=== PATIENT | male | born 1960 | race Caucasian/White ===

== ENCOUNTER 2019-09-08 10:48 | Day surgery (SDC) | payer BC, OTHER ==
[~2019-09-08] VITALS: Ht 188 cm; Wt 143.8 kg
[~2019-09-08 10:48] MED LIST: ASPIR 8181 M1 PO; HYTRIN 1 MG CAP1 MG PO; IBUPROFEN 800800 M1 PO; LISINOPRIL-HCT1 EAC1 PO; METOPROLOL TAR100 MG PO; OMEPRAZOLE 20 M20 M1 PO; ROSUVASTATIN CA20 MG PO
[2019-09-08 11:53] LABS: CALCIUM 9.2 mg/dL (8.5-10.1); CREATININE 0.9 mg/dL (0.7-1.3); POTASSIUM 4.3 mmol/L (3.5-5.1)
[2019-09-08 12:06] VITALS: BP 126/71
[2019-09-08 13:59] VITALS: BP 126/71
--- NOTE | 2019-09-08 14:01 | EKG ---
[facility] [place] [address] ELECTROCARDIOGRAM REPORT Name: SARINA LOW Room #: 150-2 [facility]..#: [id number] Admission: 09/08/19 Attend Phys: Rosalio Irene MD Discharge: Date of : 56 Report #: [id number] THIS REPORT FOR: cc: TERESA - No family physician/PCP TERESA - No family physician/PCP Carl Cyr MD [facility] ~ THIS REPORT FOR: //name// [facility] Test Date: 2019-09-08 Test Time: 11:21:38 Pat Name: SARINA LOW Department: Room: Gender: Deaf Interpreter: BRIAN : 1960 Requested By: Rosalio Irene Order Number: [id number] MD: Carl Cyr Measurements Intervals [place] Rate: 56 P: -2 GA: 180 QRS: -1 QRSD: 98 T: 29 QT: 418 QTc: 404 Interpretive Statements Sinus bradycardia Otherwise normal tracing No previous ECG available for comparison Electronically Signed On 09-08-2019 14:01:20 CDT by Carl Cyr [email or web address] <ELECTRONICALLY SIGNED> By: Carl Cyr MD, [facility] 09/08/19 1401 1121 112 Carl Cyr MD, [facility] /EPI
--- NOTE | 2019-09-12 08:54 | O ---
[address] [address] OPERATIVE REPORT Name: SARINA LOW Room #: [facility]#: [id number] Admission: 09/08/19 Attend Phys: Rosalio Irene MD Discharge: 09/08/19 Date of : 56 Report #: [id number] THIS REPORT FOR: cc: TERESA - No family physician/PCP FAM - No family physician/PCP Rosalio Irene MD ~ CC: TERESA physician/PCP Rosalio Irene DATE OF SERVICE: 09/08/2019 SERVICE: Orthopedics. FACILITY: [facility]. SURGEON: Rosalio Irene MD AUTOMOBILE TESTER: Linda Christianson NP. PREOPERATIVE DIAGNOSIS: 1. Left knee acute medial meniscus tear 2. Left knee chondromalacia POSTOPERATIVE DIAGNOSIS: 1. Left knee acute medial meniscus tear 2. Left knee chondromalacia PROCEDURE: Left knee arthroscopic partial medial meniscectomy with chondroplasty INDICATION FOR AUTOMOBILE TESTER: Extremity positioning, assistance with the initial repair. ANESTHESIA: General. COMPLICATIONS: Tissue quality prevented retention of his meniscal repair sutures. SPECIMENS: None. ESTIMATED BLOOD LOSS: Zero. FINDINGS: 1. Grade 2-3 chondromalacia of medial compartment, grade 2-3 chondromalacia of the patella and intact lateral compartment. 2. Radial tear of the posterior horn of the medial meniscus treated with [address] [address] OPERATIVE REPORT Name: SARINA LOW Room #: [facility]#: [id number] Admission: 09/08/19 Attend Phys: Rosalio Irene MD Discharge: 09/08/19 Date of : 56 Report #: [id number] partial meniscectomy, total meniscal volume resected approximately 15%. INDICATIONS: The patient is a 59-year-old gentleman who had a prodromal history of left knee pain that became acutely more painful approximately 1 week ago when he was changing his clothes. He presented with inability to bear weight, acute onset knee pain, medial-sided symptoms and effusion and decreased range of motion. We obtained an MRI, which showed a complete radial tear of the medial meniscus. We had discussion about treatment options. Given the appearance, recommended attempt at surgical treatment with repair versus debridement in order to eliminate the unstable flap portion and he was in favor of this. He understood that meniscal repair may not be a viable option given the potential status of the tissue itself and wished to move forward with this surgical treatment. Risks, benefits, alternatives, and indication of surgery discussed with him in detail. Risks include but not limited to pain, bleeding, infection, injury to nerves or blood vessels, persistent pain despite surgical intervention, failure of any repairs, progression of preexisting chondral injury, stiffness, need for further surgery as well as complications related to anesthesia such as stroke, heart attack, pulmonary complications, thromboembolic disease and . We will be prescribing an adult aspirin daily for DVT prophylaxis as well as early range of motion and ankle pumps due to history of uncomplicated DVT in the right leg in the past. PROCEDURE IN DETAIL: After left lower extremity was correctly identified in the preoperative holding area as the operative extremity, the patient was taken to the operating room where general anesthesia was induced without complications. He was padded appropriately. Prophylactic antibiotics were administered at appropriate time. Tourniquet was applied to the left leg. Left lower extremity was then prepped and draped in standard sterile fashion. Time-out procedure was performed. Esmarch was used. Tourniquet inflated to 300 mmHg. A standard anterolateral viewing portal was established followed by anteromedial portal as well. Diagnostic arthroscopy revealed the above findings. The ACL was intact. There was just focal area of articular cartilage grade 3 chondromalacia of the patellofemoral joint. This was treated with chondroplasty with the shaver and then the synovitis was resected with the shaver as well. The lateral compartment was found to be healthy. The medial compartment overall had some chondromalacia of medial femoral condyle and a little bit of the medial tibia as well and then there was full thickness radial tear of the posterior horn of the medial meniscus. This had a complex configuration with the primary tear pattern being radial. I debrided the unstable portions including the flap portion with the biter until we had 2 fresh sides of the radial tear and the tissue quality here looked healthy. I used a total of 3 Ceterix NovoStitch sutures to provide [id number] repair and tied. They initially provided good apposition of the medial and lateral limbs of the radial tear. I had 2 that I tied up, had maintained the meniscal apposition after the repair with simple flexion to approximately 80 degrees of flexion, then extension and repeat visualization of the sutures had pulled through. The knots were maintained at the [address] [address] OPERATIVE REPORT Name: SARINA LOW Room #: [facility] [place]#: [id number] Admission: 09/08/19 Attend Phys: Rosalio Irene MD Discharge: 09/08/19 Date of : 56 Report #: [id number]. Meniscal tissue was of insufficient quality to maintain the repair with 0 permanent sutures. Therefore, these were cut and removed and then I used the biter and shaver to complete the contouring to stable perimeter and then the meniscal debris was lavaged out of the knee. The arthroscopic effusion was drained, instruments were removed. Portal sites were closed. Sterile dressing was applied and bilateral compression hose were placed for DVT prophylaxis. The patient was awakened from anesthesia and taken to recovery room in stable condition. No complications. All counts were correct. <ELECTRONICALLY SIGNED> By: Rosalio Irene MD 09/12/19 0854 [id number] Rosalio Irene MD /malvin
== END 2019-09-08 14:30 | disposition home or self-care (01) ==
LOC: TBA 10:48 → OR 10:48 → TBA 10:49 → OR 14:08
PROVIDERS: ATTEND Orthopaedic Surgery Sports Medicine
DX: M25.562 Pain in left knee (principal); S83.242A Other tear of medial meniscus, current injury, left knee, initial encounter; M94.262 Chondromalacia, left knee; I10 Essential (primary) hypertension; E78.5 Hyperlipidemia, unspecified; K21.9 Gastro-esophageal reflux disease without esophagitis; Z11.59 Encounter for screening for other viral diseases; Z98.890 Other specified postprocedural states; Z79.899 Other long term (current) drug therapy; Z88.8 Allergy status to other drugs, medicaments and biological substances; X58.XXXA Exposure to other specified factors, initial encounter; Y93.89 Activity, other specified; Y92.89 Other specified places as the place of occurrence of the external cause; Y99.8 Other external cause status
CPT/HCPCS: 50010; 50101; 50405; 56527; 57103; 57180; 62110; 62900; 70005